=== PATIENT | female | born 1940 | race Asian ===

== ENCOUNTER → 2016-06-28 | Outpatient (CLI) | payer OTHER ==
[~2016-06-28] MED LIST: AMLO2.5T PO; ASPI-1093 PO; ATOR40TA28 PO; CARV25 PO; CLOP75 PO; ESOM20CA31 PO; GLIM4 PO; LIRA0.6P SQ; METF500T7 PO; MONT10TA21 PO; PANT40TA25 PO
== END | disposition home or self-care (01) ==
LOC: RADPV 13:48
PROVIDERS: ATTEND Internal Medicine Nephrology
DX: N18.9 Chronic kidney disease, unspecified (principal); N27.1 Small kidney, bilateral
CPT/HCPCS: 76770

== ENCOUNTER 2016-08-15 22:03 | Emergency (ER) | payer OTHER ==
[~2016-08-15] VITALS: Ht 160 cm; Wt 74.0 kg
[2016-08-15] MEDS ORDERED: ACAR50TA11 PO (22:18)
[2016-08-15] MEDS ORDERED: EMPA10TA PO (22:18)
[2016-08-15 22:22] LABS: GLUCOSE,POINT OF CARE 200 MG/DL (70-110)
[2016-08-15] MEDS ORDERED: DiphenhydrAMINE HCL 50 MG/ML VIAL IM ONE (23:30)
[2016-08-16 00:26] VITALS: BP 128/62
== END 2016-08-16 00:31 | disposition home or self-care (01) ==
LOC: EMS 22:08
DX: T36.8X5A Adverse effect of other systemic antibiotics, initial encounter (principal); L24.4 Irritant contact dermatitis due to drugs in contact with skin; E11.9 Type 2 diabetes mellitus without complications; I10 Essential (primary) hypertension; Z88.0 Allergy status to penicillin; Z88.1 Allergy status to other antibiotic agents
CPT/HCPCS: 82962; 96372; 99283; J1200

== ENCOUNTER 2017-06-29 08:44 | Emergency (ER) | payer OTHER ==
[~2017-06-29] VITALS: Ht 160 cm; Wt 73.2 kg
[~2017-06-29 08:44] MED LIST changes: +ACAR50TA11 PO; -AMLO2.5T PO; -ASPI-1093 PO; +ASPI-1182 PO; -ATOR40TA28 PO; +EMPA10TA PO; -ESOM20CA31 PO
[2017-06-29 09:02] LABS: GLUCOSE,POINT OF CARE 176 MG/DL (70-110)
[2017-06-29] MEDS ORDERED: POVIDONE-IODINE 10% 15 ML SOLUTION UD TP ONE (10:00)
[2017-06-29] MEDS ORDERED: ACETAMINOPHEN 500 MG TABLET PO ONE (10:00)
[2017-06-29] MEDS ORDERED: BACITRACIN 0.9 GM PACKET OINTMENT TP ONE (10:00)
[2017-06-29] MEDS ORDERED: LIDOCAINE HCL 1% 10 ML VIAL INJ ONE (10:00)
[2017-06-29 10:48] VITALS: BP 140/80
== END 2017-06-29 10:52 | disposition home or self-care (01) ==
LOC: EMS 08:47
DX: S51.011A Laceration without foreign body of right elbow, initial encounter (principal); E11.9 Type 2 diabetes mellitus without complications; I10 Essential (primary) hypertension; Z88.1 Allergy status to other antibiotic agents; Z88.0 Allergy status to penicillin; W19.XXXA Unspecified fall, initial encounter; Y93.89 Activity, other specified; Y92.89 Other specified places as the place of occurrence of the external cause; Y99.8 Other external cause status
CPT/HCPCS: 12001; 73080; 82962; 99284; J3490

== ENCOUNTER 2017-07-08 17:40 | Emergency (ER) | payer OTHER ==
[~2017-07-08] VITALS: Ht 160 cm; Wt 73.2 kg
[2017-07-08 18:42] VITALS: BP 135/55
[2017-07-08 18:52] LABS: GLUCOSE,POINT OF CARE 154 MG/DL (70-110)
== END 2017-07-08 20:09 | disposition home or self-care (01) ==
LOC: EMS 17:40
DX: S51.011D Laceration without foreign body of right elbow, subsequent encounter (principal); E11.9 Type 2 diabetes mellitus without complications; I10 Essential (primary) hypertension; Z79.82 Long term (current) use of aspirin; Z79.84 Long term (current) use of oral hypoglycemic drugs; Z88.0 Allergy status to penicillin; X58.XXXD Exposure to other specified factors, subsequent encounter
CPT/HCPCS: 99282